=== PATIENT | female | born 1980 | race Caucasian/White ===

== ENCOUNTER 2016-10-07 10:54 | Outpatient (CLI) | payer OTHER ==
[2016-10-07 13:09] VITALS: BP 106/63; PULSE 98; RESP 20; TEMP 96.4
== END 2016-10-07 12:30 | disposition home or self-care (01) ==
LOC: FBPOP 10:54
PROVIDERS: ATTEND Obstetrics & Gynecology
DX: O26.92 Pregnancy related conditions, unspecified, second trimester (principal); Z3A.23 23 weeks gestation of pregnancy
CPT/HCPCS: 82731; 99213

== ENCOUNTER 2017-01-09 13:54 | Outpatient (CLI) | payer OTHER ==
[2017-01-09 14:57] VITALS: BP 121/61; PULSE 86; RESP 16; TEMP 97.8
--- NOTE | 2017-02-27 09:27 | P.MSEPDOC ---
Presenting Problems - Arrival Data Date of Arrival on Unit: 01/09/17 Time of Arrival on Unit: 13:50 Mode of Transport: Ambulatory - Complaint OB-Reason for Admission/Chief Complaint: Rule Out PROM Comment: gush of clear fluid at 1320, aminsure negative Medical History - Information : 3 Para: 1 Term: 0 : 1 Abortions: Spontaneous or Elective: 1 Number of Living Children: 1 - Gestational Age Gestational Age by LEIDA (wks/days): 37 Weeks and 6 Days - History Complications: Prior Comment: circumvallate placenta Review of Systems - Review of Systems Constitutional: No problems Breast: No problems ENT: No problems Cardiovascular: No problems Respiratory: No problems Gastrointestinal: No problems Genitourinary: No problems Musculoskeletal: No problems Neurological: No problems Skin: No problems Vital Signs - Temperature Temperature: 97.8 F Temperature Source: Temporal Artery Scan - Pulse Right Sitting Brachial Pulse Rate: 86 - Respirations Respiratory Rate: 16 - Blood Pressure Right Arm Blood Pressure: 121/61 Blood Pressure Mean: 81 Blood Pressure Source: Automatic Cuff Medical Screen Scoring (Pre) - Cervical Exam Dilation: 1-3 cm = 1 Effacement: More than 50% = 2 Membranes: Intact - Uterine Contractions Frequency: N/A Duration: N/A Intensity: N/A - Maternal Vital Signs Maternal Temperature: N/A Maternal Blood Pressure: N/A Signs of Preeclampsia: N/A Maternal Respirations: N/A - Maternal Trauma Maternal Trauma: N/A - Assessment Baseline FHR: 120 Heart Rate - NICHD Category: Category I (Normal) = 0 NST: Reactive Position: N/A Station: N/A - Total Score Total Score (Pre): 3 - Level of Risk Level of Risk: Low (0-5) Physician Notification (Pre) - Physician Notified Physician Notified Date: 01/09/17 Physician Notified Time: 14:35 Physician/Practitioner Notifed:: Reji Spoke With: Reji New Order Received: Yes (discharge home) Disposition - Disposition OB Disposition: Physician follow up in office, Discharge to home Discharge Date: 01/09/17 Discharge Time: 14:35 I agree with the RN Medical Screening Exam: Yes Risk & Benefit of care provided described in d/c instruction: Yes Diagnosis: FALSE LABOR AT OR AFTER 37 COMPLETED WEEKS OF GESTATION
== END 2017-01-09 14:45 | disposition home or self-care (01) ==
LOC: FBPOP 13:54
PROVIDERS: ATTEND Obstetrics & Gynecology
DX: O47.1 False labor at or after 37 completed weeks of gestation (principal); Z3A.37 37 weeks gestation of pregnancy
CPT/HCPCS: 59025; 84112; 99213

== ENCOUNTER 2017-01-10 05:00 | Inpatient (IN) | payer OTHER ==
[2017-01-10] MEDS ORDERED: LIDOCAINE 1% (PF) 10 MG/ML (30 ML SDV) SQ PRN (05:21)
[2017-01-10] MEDS ORDERED: CARBOPROST TROMETHAMINE 250 MCG/ML 1 ML AMP IM PRN (05:21)
[2017-01-10] MEDS ORDERED: METHYLERGONOVINE 0.2 MG/ML 1 ML AMP IM PRN (05:21)
[2017-01-10] MEDS ORDERED: TERBUTALINE 1 MG/ML VIAL SQ PRN (05:21)
[2017-01-10] MEDS ORDERED: OXYTOCIN 10 UNIT/ML 1 ML VIAL IM PRN (05:21)
[2017-01-10 05:41] LABS: Basophils % (A) 0 %; CH 29.6; CHCM 33.9; Eosinophils # (A) 0.1 k/uL (0-0.7); Eosinophils % (A) 1 %; HCT 38.6 % (34.0-46.0); HDW 2.63; HGB 13.2 gm/dL (11.4-16.0); Luc % (Auto) 3; Lymphocytes # (A) 2.2 k/uL (1.0-4.8); Lymphocytes % (A) 22 %; MCH 29.9 pg (25.0-35.0); MCHC 34.1 g/dL (31.0-37.0); MCV 87.7 fL (80.0-100.0); Mean Platelet Volume 6.8; Monocytes # (A) 0.4 k/uL (0-1.0); Monocytes % (A) 4 %; Neutrophils # (A) 6.7 k/uL (1.3-7.7); Neutrophils % (A) 69 %; RBC 4.41 m/uL (3.80-5.40); RDW 13.4 % (11.5-15.5); WBC 9.7 k/uL (3.8-10.6); WBC (Perox) 10.14
[2017-01-10 05:42] VITALS: BMI 31.8
[2017-01-10] MEDS: LACTATED RINGERS 1,000 ML IV SCH ×4 (05:43→20:41)
[2017-01-10] MEDS ORDERED: BUPIVACAINE (PF) 0.25% 30 ML VIAL ONE (06:18)
[2017-01-10] MEDS ORDERED: fentaNYL (PF) 50 MCG/ML 5 ML AMP ONE (06:18)
[2017-01-10] MEDS ORDERED: SODIUM CHLORIDE 0.9% 100 ML BAG ONE (06:18)
--- NOTE | 2017-01-10 06:35 | P.HPOB ---
History of Present Illness H&P Date: 01/10/17 This is a 36-year-old white female 3 para 101 this is a pleasant white female, 5 foot 6 inches, 197 pounds, initial blood pressure 116/63, vital signs are stable and she is afebrile. The general physical exam is within normal limits. The cervix is 7-8 cm, 90% effaced, -1 station, vertex presentation. Artificial amniorrhexis reveals clear fluid. heart rate is consistent with reactive NST. There is no peripheral edema and the chest is clear in all viramontes. Impression: 38 week intrauterine , now in spontaneous active labor. Plan: Epidural will be placed at this time per patient's request. Continue close maternal and surveillance. Anticipate normal spontaneous vaginal delivery. 1 EDC 01/24/2017 at 38 weeks gestation. Patient presents with strong regular uterine contractions. She denies fluid leakage or vaginal bleeding. Fetus is been active throughout the . Obstetric history blood type is O-, rubella status immune. Gonorrhea and chlamydia cultures, hepatitis B surface antigen, HIV testing, urine culture, VDRL testing, group B strep cultures all negative. is remarkable for circumvallate placenta, weekly nonstress tests have all been reactive. Past surgical history is significant for voluntary termination of in the past. Current medications I clean just at bedtime as needed, vitamin daily. ALLERGIES none known. Past surgical history vaginal delivery 2014. Social history patient works at a [employer], she is , she denies alcohol tobacco or drug use. On exam this is a pleasant white female, 5 foot 6 inches, 197 pounds, vital signs are stable and patient is afebrile, initial blood pressure 116/63. The general physical exam is within normal limits. Cervix is 7-8 cm dilated, 90% effaced, -1 station, vertex presentation. Artificial amniorrhexis reveals clear fluid. heart rate is consistent with reactive NST. There is no peripheral edema and the chest is clear in all viramontes. Impression: 38 week intrauterine , active spontaneous labor, history of circumvallate placenta. Plan: Epidural is being placed per her request. Close maternal and surveillance. Anticipate normal spontaneous vaginal delivery. Past Medical History Past Medical History: No Reported History History of Any Multi-Drug Resistant Organisms: None Reported Past Surgical History: No Surgical Hx Reported Past Anesthesia/Blood Transfusion Reactions: No Reported Reaction Past Psychological History: No Psychological Hx Reported Smoking Status: Never smoker Past Alcohol Use History: None Reported Past Drug Use History: None Reported - Past Family History Mother Family Medical History: No Reported History Medications and Allergies Home Medications Medication Instructions Recorded Confirmed Type Vit No.124/Iron/Folic 1 each PO DAILY 04/04/15 01/10/17 History [ Vitamin Tablet] Allergies Allergy/AdvReac Type Severity Reaction Status Date / Time No Known Allergies Allergy Verified 01/10/17 05:07 Exam - Vital Signs Vital signs: Vital Signs Temp Pulse Resp BP 01/10/17 05:36 97.3 F L 84 16 116/63 01/10/17 05:19 97.3 F L 84 16 116/63 Intake and Output 01/09/17 01/09/17 01/10/17 14:59 22:59 06:59 Intake Total 1000 Balance 1000 Intake: Intake, IV Titration 1000 Amount Lactated Ringers 1,000 ml 1000 @ 125 mls/hr IV .Q8H [facility] Rx#:[id number] Other: # Voids 1 Weight 89.358 kg Patient Weight 01/10/17 06:59 Weight 89.358 kg Results Result Diagrams: 01/10/17 05:35
[2017-01-10] MEDS ORDERED: Acetaminophen-Codeine 300-30mg TAB PO PRN (07:47)
[2017-01-10] MEDS ORDERED: WITCH HAZEL 1 EACH MED..PAD TOPICAL PRN (07:47)
[2017-01-10] MEDS ORDERED: diphenhydrAMINE ELIXIR 25 MG/10 ML CUP PO PRN (07:47)
[2017-01-10] MEDS ORDERED: HYDROCORTISONE 2.5% RECTAL CREAM 30 GM TUBE RECTAL PRN (07:47)
[2017-01-10] MEDS ORDERED: LANOLIN CREAM 5 GM TUBE TOPICAL PRN (07:47)
[2017-01-10] MEDS ORDERED: BENZOCAINE/MENTHOL SPRAY 1 GM/SPRAY AEROSOL TOPICAL PRN (07:47)
[2017-01-10] MEDS ORDERED: ACETAMINOPHEN TAB 325 MG TAB PO PRN (07:47)
[2017-01-10] MEDS ORDERED: SIMETHICONE 80 MG CHEWABLE PO PRN (07:47)
[2017-01-10] MEDS ORDERED: diphenhydrAMINE 50 MG/ML 1 ML VIAL IVP PRN ×2 (07:47)
[2017-01-10] MEDS ORDERED: ZOLPIDEM 5 MG TAB PO PRN (07:47)
[2017-01-10] MEDS ORDERED: diphenhydrAMINE 25 MG CAP PO PRN (07:47)
[2017-01-10] MEDS ORDERED: diphenhydrAMINE 50 MG CAP PO PRN (07:47)
--- NOTE | 2017-01-10 07:47 | P.PROBDLV ---
Vaginal Delivery Note - . Vaginal Delivery Note: This is a 36-year-old white female 3 para 1011 EDC 01/24/2017 at 38 weeks gestation. Patient presented with strong regular uterine contractions, in active spontaneous labor. Fetus is been active throughout the . is significant for circumvallate placenta, blood type O-, rubella status immune, group B strep cultures negative. Please see my dictated history and physical for details. Patient was admitted, epidural was placed per her request. She progressed well through the first stage of labor was judged to be completely dilated at 0659 hours. Perineal body was prepped and draped in usual sterile fashion. With excellent maternal expulsive efforts the head delivered occiput anterior and restituted accordingly. There was no nuchal cord noted. The anterior or left shoulder delivered swiftly from underneath the pubic symphysis at which time the oropharynx, nasopharynx and external nares were bulb suctioned. Patient was officially delivered of a liveborn female infant at 0711 hours. Umbilical cord was doubly clamped and ligated, she was handed to waiting nurses for evaluation where scores of 9 and 9 at one and 5 minutes respectively were given. The placenta delivered spontaneously, it was inspected and noted to be intact with trivascular cord at 0713 hours. Uterus is then massaged. Inspection of the cervix, vagina, perineum and periurethral areas revealed a small left labial laceration repaired with a single sxaolo-cc-leger suture of 3-0 Vicryl for excellent reapproximation. Fundus is firm and in the midline, symmetric and 18 week size upon completion of delivery. Infant weighs 3335 g or 7 lbs. 6 oz. All sponge needle and enhancement counts are correct at the and of the procedure. Estimated blood loss 300 mL's. Amnio are allowed to begin the bonding experience in the LDR.
[2017-01-10] MEDS: IBUPROFEN 600 MG TAB PO PRN ×2 (14:13→19:42)
[2017-01-10] MEDS ORDERED: Rhogam IMMUNE GLOBULIN 1,500 UNIT/1 ML IM ONE (16:50)
[2017-01-10] MEDS: SENNOSIDES-DOCUSATE SODIUM 1 EACH TAB PO SCH ×2 (16:52→19:40)
[2017-01-11] MEDS: IBUPROFEN 600 MG TAB PO PRN ×2 (01:50→07:56)
[2017-01-11] MEDS: LACTATED RINGERS 1,000 ML IV SCH (05:27)
[2017-01-11] MEDS: SENNOSIDES-DOCUSATE SODIUM 1 EACH TAB PO SCH (07:56)
[2017-01-11 07:59] VITALS: BP 109/67; PULSE 77; RESP 16; TEMP 97.9
--- NOTE | 2017-01-11 08:15 | P.PNOBGVD ---
Subjective - Subjective Principal diagnosis: Status post spontaneous vaginal delivery Patient reports: Reports appetite normal, Reports voiding normally, Reports pain well controlled, Reports ambulating normally [place]: doing well Objective - Latest Vital Signs Latest vital signs: Vital Signs Temp Pulse Resp BP Pulse Ox 01/11/17 07:59 97.9 F 77 16 109/67 01/11/17 04:00 97.8 F 80 18 103/72 100 01/11/17 00:00 97.8 F 72 20 102/63 95 01/10/17 20:00 97.6 F 82 18 102/63 98 01/10/17 16:00 98.3 F 78 16 118/74 01/10/17 12:00 98.5 F 86 16 111/53 01/10/17 09:29 98 16 120/51 01/10/17 08:59 85 16 103/59 01/10/17 08:29 98.1 F 90 16 104/55 01/10/17 08:14 99 16 105/57 Intake and Output 01/10/17 01/11/17 01/11/17 22:59 06:59 14:59 Intake Total 250 Balance 250 Intake: Oral 250 - Exam Lungs: bilateral: normal Extremities: Present: normal Abdomen: Present: normal appearance (Uterus firm below the umbilicus) Uterus: Present: firm Assessment and Plan (1) Normal spontaneous vaginal delivery Narrative/Plan: Plan to discharge later this afternoon. Her pain is controlled with Motrin and a prescription will be given to her for this. She will follow-up in [address] Mendoza. Current Visit: No Status: Acute Code(s): O80 - ENCOUNTER FOR FULL-TERM UNCOMPLICATED DELIVERY SNOMED Code(s): 39594108
--- NOTE | 2017-01-11 08:20 | P.DS ---
Providers Date of admission: 01/10/17 05:25 Expected date of discharge: 01/11/17 Attending physician: Cody Guerra Primary care physician: Cody Guerra - Discharge Diagnosis(es) (1) Normal spontaneous vaginal delivery Adilene is a very pleasant 36-year-old 3 para 1011 presented to labor and delivery on 822 with complaints of contractions. Patient patient progressed through labor and spontaneous vaginal delivery of a viable female, weight 7 lbs. 6 oz., EV is her name. Apgars of 9 and 9 at one and 5 minutes respectively. she has done well. She is ambulating and voiding without difficulty. She is tolerating a regular diet without nausea or vomiting. Her lochia is moderate. She is breast-feeding. Current Visit: No Status: Acute Hospital Course: Alcides course has been benign and she is doing well and will be discharged home on day #1 Patient Condition at Discharge: Good Plan - Discharge Summary New Discharge Prescriptions: No Action Vit No.124/Iron/Folic [ Vitamin Tablet] 1 each PO DAILY Discharge Medication List Vit No.124/Iron/Folic [ Vitamin Tablet] 1 each PO DAILY [History] Follow up Appointment(s)/Referral(s): Eloise Mendoza MD [STAFF PHYSICIAN] - 6 Weeks Patient Instructions/Handouts: Vaginal Delivery (GEN) Discharge Disposition: HOME SELF-CARE
== END 2017-01-11 11:35 | disposition home or self-care (01) | DRG 775 ==
LOC: FBPOP 05:00 → 4FBP 05:25
PROVIDERS: ADMIT Obstetrics & Gynecology; ATTEND Obstetrics & Gynecology
PROC: 10E0XZZ Delivery of Products of Conception, External Approach (ICD-10-PCS; principal; 2017-01-10)
PROC: 0HQ9XZZ Repair Perineum Skin, External Approach (ICD-10-PCS; 2017-01-10)
PROC: 3E0234Z Introduction of Serum, Toxoid and Vaccine into Muscle, Percutaneous Approach (ICD-10-PCS; 2017-01-10)
PROC: 00HU33Z Insertion of Infusion Device into Spinal Canal, Percutaneous Approach (ICD-10-PCS; 2017-01-10)
PROC: 3E0R3CZ (ICD-10-PCS; 2017-01-10)
DX: O43.113 Circumvallate placenta, third trimester (principal); O26.893 Other specified pregnancy related conditions, third trimester; O70.0 First degree perineal laceration during delivery; Z37.0 Single live birth; Z3A.38 38 weeks gestation of pregnancy; Z79.899 Other long term (current) drug therapy; Z67.41 Type O blood, Rh negative
CPT/HCPCS: 59025; 85025; 88307; 99213

== ENCOUNTER → 2022-08-12 | Outpatient (CLI) | payer OTHER ==
--- NOTE | 2022-08-15 10:58 | MM ---
Reason for Exam: Screening (asymptomatic). Baseline mammogram. Patient History: Menarche at age 13. First Full-Term at age 35. Late child-bearing (after 30). Hormonal Contraceptives, from age 18 until age 24. Last menstrual period: 07/13/2022 Risk Values: Rosy 5 year model risk: 0.8%. NCI Lifetime model risk: 14.8%. Prior Study Comparison: Patient's first Mammogram. Tissue Density: The breast tissue is heterogeneously dense. This may lower the sensitivity of mammography. Findings: Analyzed By CAD. Benign-appearing right axillary lymph nodes are present. There is no suspicious group of microcalcifications or new suspicious mass in either breast. Overall Assessment: Negative, BI-RAD 1 Management: Screening Mammogram of both breasts in 1 year. Some advise bilateral breast ultrasound surveillance in patients with background dense tissue. A clinical breast exam by your physician is recommended on an annual basis and results should be correlated with mammographic findings. Electronically signed and approved by: Shailesh Alberto M.D.
== END | disposition home or self-care (01) ==
LOC: RADMAMWWP 13:30
PROVIDERS: ATTEND Obstetrics & Gynecology
DX: Z12.31 Encounter for screening mammogram for malignant neoplasm of breast (principal)
CPT/HCPCS: 77063; 77067

== ENCOUNTER → 2023-09-15 | Outpatient (CLI) | payer OTHER ==
--- NOTE | 2023-09-18 12:55 | MM ---
Reason for Exam: Screening (asymptomatic). Last mammogram was performed 1 year(s) and 1 month(s) ago. Patient History: Menarche at age 13. First Full-Term at age 35. Late child-bearing (after 30). Premenopausal. Hormonal Contraceptives, from age 18 until age 24. Risk Values: Rosy 5 year model risk: 0.9%. NCI Lifetime model risk: 14.7%. Prior Study Comparison: 08/12/2022 Bilateral MG 3D screening mammo w/cad, [facility]. Tissue Density: The breasts are extremely dense, which lowers the sensitivity of mammography. Findings: Analyzed By CAD. Right breast: Asymmetry right breast medial aspect on CC view measuring 9 mm and 4.7 cm from the nipple. Left breast: There is no suspicious group of microcalcifications or new suspicious mass. Overall Assessment: Incomplete: need additional imaging evaluation, BI-RAD 0 Management: Diagnostic Mammogram of the right breast. [facility] will attempt to contact patient to return for supplemental views and ultrasound if indicated. Patient should continue monthly self-breast exams. A clinical breast exam by your physician is recommended on an annual basis. This exam should not preclude additional follow-up of suspicious palpable abnormalities. Note on Rosy scores and lifetime risk: 1. A Rosy score greater than 3% is considered moderate risk. If this is the case, consider specialist referral to assess eligibility for a risk reducing agent. 2. If overall lifetime risk for the development of breast cancer is 20% or higher, the patient may qualify for future screening with alternating mammogram and breast MRI. Electronically signed and approved by: Amandeep Gutierrez DO
== END | disposition home or self-care (01) ==
LOC: RADMAMWWP 12:44
PROVIDERS: ATTEND Obstetrics & Gynecology
DX: Z12.31 Encounter for screening mammogram for malignant neoplasm of breast (principal)
CPT/HCPCS: 77067

== ENCOUNTER → 2023-09-29 | Outpatient (CLI) | payer OTHER ==
--- NOTE | 2023-09-29 13:35 | MM ---
Reason for Exam: Additional evaluation requested from abnormal screening. Last screening mammogram was performed less than 1 month ago. Patient History: Menarche at age 13. First Full-Term at age 35. Late child-bearing (after 30). Premenopausal. Hormonal Contraceptives, from age 18 until age 24. Risk Values: Rosy 5 year model risk: 0.9%. NCI Lifetime model risk: 14.7%. Prior Study Comparison: 08/12/2022 Bilateral MG 3D screening mammo w/cad, [facility]. 09/15/2023 Bilateral MG screening mammo w CAD, [facility]. Tissue Density: Right: The breasts are heterogeneously dense, which may obscure small masses. Findings: Analyzed By CAD. The medial asymmetric density appears to disperse on additional views. Given the appearance on the screening exam, a precautionary 6 month follow-up is recommended. Overall Assessment: Probably benign, BI-RAD 3 Management: Diagnostic Mammogram of the right breast in 6 months. . Results were given to the patient verbally at the time of exam. Patient should continue monthly self-breast exams. A clinical breast exam by your physician is recommended on an annual basis. This exam should not preclude additional follow-up of suspicious palpable abnormalities. Note on Rosy scores and lifetime risk: 1. A Rosy score greater than 3% is considered moderate risk. If this is the case, consider specialist referral to assess eligibility for a risk reducing agent. 2. If overall lifetime risk for the development of breast cancer is 20% or higher, the patient may qualify for future screening with alternating mammogram and breast MRI. Electronically signed and approved by: Jacob Huerta M.D. Radiologist
== END | disposition home or self-care (01) ==
LOC: RADMAMWWP 13:09
PROVIDERS: ATTEND Obstetrics & Gynecology
DX: R92.331 Mammographic heterogeneous density, right breast (principal)
CPT/HCPCS: 77061; 77065

== ENCOUNTER → 2024-12-20 | Outpatient (CLI) | payer OTHER ==
--- NOTE | 2024-12-20 18:18 | MM ---
Reason for Exam: Screening (asymptomatic). Last mammogram was performed 1 year(s) and 4 month(s) ago. Patient History: Menarche at age 13. First Full-Term at age 35. Late child-bearing (after 30). Premenopausal. Patient has history of breast feeding. Currently using Progesterone, starting at age 44. Hormonal Contraceptives, from age 18 until age 24. Risk Values: Rosy 5 year model risk: 1.0%. NCI Lifetime model risk: 14.6%. Prior Study Comparison: 08/12/2022 Bilateral MG 3D screening mammo w/cad, [facility]. 09/15/2023 Bilateral MG screening mammo w CAD, [facility]. 09/29/2023 Right MG 3D work up w/cad RT, [facility]. Tissue Density: The breasts are heterogeneously dense, which may obscure small masses. Findings: Analyzed By CAD. Asymmetric density central lower right MLO view middle depth does not persist on 3-D images. Findings compatible with superimposition shadow. There is no suspicious group of microcalcifications or new suspicious mass in either breast. Overall Assessment: Benign, BI-RAD 2 Management: Screening Mammogram of both breasts in 1 year. . Patient should continue monthly self-breast exams. A clinical breast exam by your physician is recommended on an annual basis. This exam should not preclude additional follow-up of suspicious palpable abnormalities. Note on Rosy scores and lifetime risk: 1. A Rosy score greater than 3% is considered moderate risk. If this is the case, consider specialist referral to assess eligibility for a risk reducing agent. 2. If overall lifetime risk for the development of breast cancer is 20% or higher, the patient may qualify for future screening with alternating mammogram and breast MRI. [facility], , 12/20/2024 6:15 PM. Electronically signed and approved by: Jacob Huerta M.D. Radiologist
== END | disposition home or self-care (01) ==
LOC: RADMAMWWP 12:44
PROVIDERS: ATTEND Obstetrics & Gynecology
DX: Z12.31 Encounter for screening mammogram for malignant neoplasm of breast (principal); R92.333 Mammographic heterogeneous density, bilateral breasts; Z92.0 Personal history of contraception
CPT/HCPCS: 77063; 77067